=== PATIENT | male | born 1940 ===

== ENCOUNTER 2022-10-29 15:38 | Emergency (ER) | payer MEDICARE ==
[~2022-10-29] VITALS: Ht 177.8 cm; Wt 77.3 kg
[2022-10-29 15:53] VITALS: BP 157/85
[2022-10-29] MEDS ORDERED: LIDOcaine 2% 10ml TOPICAL JELLY (Urojet) TP ONE (19:20)
== END 2022-10-29 20:51 | disposition left against medical advice (07) ==
LOC: ER 15:40
DX: R30.0 Dysuria (principal); Z53.21 Procedure and treatment not carried out due to patient leaving prior to being seen by health care provider